=== PATIENT | female | born 1960 | race Caucasian/White ===

== ENCOUNTER 2023-09-04 06:08 | Day surgery (SDC) | payer OTHER, SELFPAY ==
[2023-09-04 06:53] VITALS: BMI 18.2
[2023-09-04 07:18] VITALS: BP 136/73
[2023-09-04 08:55] VITALS: BP 117/74
[2023-09-04 09:01] VITALS: BP 112/66
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
[2023-09-04 09:10] VITALS: BP 112/66
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
== END 2023-09-04 09:30 | disposition home or self-care (01) ==
LOC: SDS 06:08
PROVIDERS: ATTENDING PHYSICIAN Internal Medicine Gastroenterology
DX: K57.10 Diverticulosis of small intestine without perforation or abscess without bleeding (principal); K83.8 Other specified diseases of biliary tract
CPT/HCPCS: 43237

== ENCOUNTER → 2024-08-23 09:42 | Outpatient (REF) | payer OTHER, SELFPAY ==
[2024-08-23 10:17] LABS: % Eosinophils 3.9 % (0-6); % Immature Granulocytes 0.2 % (0-0.5); % Lymphocytes 33.7 % (20.5-51.1); % Monocytes 13.7 % (1.7-9.3); % Neutrophils 47.5 % (42.2-75.2); Absolute Basophils 0.1 10^3/uL (0-0.2); Absolute Eosinophils 0.2 10^3/uL (0-0.7); Absolute Lymphocytes 1.7 10^3/uL (1.2-3.4); Absolute Monocytes 0.7 10^3/uL (0.1-0.6); Absolute Neutrophils 2.3 10^3/uL (1.4-6.5); Hemoglobin 15.4 g/dL (12.0-16.0); Mean Corp Hgb Conc. 34.2 g/dL (33.0-37.0); Mean Corpuscular Hgb 35.2 pg (27.0-31.0); Mean Corpuscular Volume 102.7 fL (81.0-99.0); Mean Platelet Volume 9.3 fL (7.4-10.4); Nucleated Red Blood Cells % 0 %; Platelet Count 341 10^3/uL (130-400); Red Blood Cell Count 4.38 10^6/uL (4.20-5.40); Red Cell Dist. Width 12.8 % (11.5-14.5); White Blood Cell Count 4.9 10^3/uL (4.8-10.8)
[2024-08-23 11:07] LABS: ALT (SGPT) 24 U/L (0-35); AST (SGOT) 41 U/L (14-36); Albumin 4.7 g/dl (3.5-5.0); Alkaline Phosphatase 112 U/L (38-126); Blood Urea Nitrogen 10 mg/dl (7-17); Calcium 9.8 mg/dl (8.4-10.2); Carbon Dioxide 28 mmol/L (22-30); Chloride 100 mmol/L (98-107); Glucose 87 mg/dl (70-99); HDL Cholesterol 78 mg/dl; LDL Cholesterol, Calculated 138 mg/dl; Potassium 4.4 mmol/L (3.5-5.1); Sodium 137 mmol/L (135-145); Total Bilirubin 0.6 mg/dl (0.2-1.3); Total Cholesterol 246 mg/dl (50-199); Total Protein 7.3 g/dl (6.3-8.2); Triglyceride 154 mg/dl (10-149); Very Low Density Lipoprotein 30 mg/dl (0-30); eGFR > 60.00
[2024-08-23 11:12] LABS: Vitamin D, 25-OH*** 37.1 ng/mL (30-80)
[2024-08-23 11:26] LABS: TSH Reflex To Free T4 2.27 uIU/ml (0.47-4.68)
[2024-08-23 14:59] LABS: Folate > 20.0 ng/ml (2.76-20); Vitamin B12 487 pg/ml (239-931)
== END ==
LOC: REG 09:42
PROVIDERS: ATTENDING PHYSICIAN Registered Nurse
DX: Z00.00 Encounter for general adult medical examination without abnormal findings (principal); M85.80 Other specified disorders of bone density and structure, unspecified site; E78.5 Hyperlipidemia, unspecified; E55.9 Vitamin D deficiency, unspecified; R79.89 Other specified abnormal findings of blood chemistry
CPT/HCPCS: 36415; 80053; 80061; 82306; 82607; 82746; 84443; 85025

== ENCOUNTER → 2025-04-20 17:38 | Outpatient (REF) | payer OTHER, SELFPAY | LOC: RCS 17:38 | PROVIDERS: ATTENDING PHYSICIAN Nurse Practitioner Adult Health | DX: R55 Syncope and collapse (principal) | CPT/HCPCS: 93306 ==